=== PATIENT | female | born 1970 | race Caucasian/White ===

== ENCOUNTER 2016-07-10 11:58 | Inpatient (IN) | payer OTHER ==
[~2016-07-10] VITALS: Ht 147.3 cm; Wt 54.0 kg
[2016-07-10 13:25] LABS: CHLORIDE 101 mEq/L (99-109); POTASSIUM 4.1 mEq/L (3.7-5.4); SODIUM 135 mEq/L (136-147)
[2016-07-10 13:26] LABS: GLUCOSE 132 mg/dL (70-99)
[2016-07-10 13:27] LABS: HEMATOCRIT 35.4 % (36.0-46.0); MCH 31.8 PG (29.0-34.0); MCHC 32.8 G/DL (30.0-36.0); MEAN PLAT.VOLUME 10.7 uM^3 (9.5-12.4); PLATELET COUNT 222 K/uL (156-360); RBC DIS.WIDTH-CV 13.1 % (11.8-14.6); RBC DIS.WIDTH-SD 44.3 % (39-53); RED BLOOD COUNT 3.65 M/uL (3.80-5.20); WHITE BLOOD COUNT 26.1 K/uL (4.1-10.2)
[2016-07-10 13:28] LABS: ANION GAP 8 MEQ/L (2-14)
[2016-07-10 13:30] LABS: GFR ESTIMATE (CALCULATED) > 59 mL/min/
[2016-07-10 13:31] LABS: UREA NITROGEN (BUN) 17 mg/dL (9-23)
[2016-07-10] MEDS ORDERED: LISINOPRIL20 MG PO (14:29)
[2016-07-10] MEDS ORDERED: ROSUVASTATIN CA20 MG PO (14:29)
[2016-07-10] MEDS ORDERED: DIVALPROEX SOD500 M1 PO (14:30)
[2016-07-10] MEDS ORDERED: SUMATRIPTAN SU100 MG PO (14:30)
[2016-07-10] MEDS ORDERED: ONDANSETRON HCL4 MG PO (14:31)
[2016-07-10 15:03] LABS: TOTAL BILIRUBIN 0.6 mg/dL (0.0-1.0)
[2016-07-10 15:04] LABS: ALKALINE PHOSPHATASE 110 IU/L (3-129)
[2016-07-10 15:06] LABS: DIRECT BILIRUBIN 0.3 mg/dL (0.0-0.3)
[2016-07-10 15:07] LABS: LIPASE 2 U/L (1.0-51.0)
[2016-07-10 15:47] LABS: ADD MIUA? YES; BILIRUBIN NEGATIVE; BLOOD SMALL; COLOR AMBER ((YELLOW)); GLUCOSE (STRIP) NEGATIVE; KETONES 20; LEUKOCYTES LARGE; NITRITE NEGATIVE; PROTEIN (STRIP) 100; SPECIFIC GRAVITY 1.023 (1.000-1.030); UROBILINOGEN 0.2 MG/DL (0.2-1.0)
[2016-07-10 15:50] LABS: BACTERIA NONE SEEN /HPF; CASTS NONE SEEN /LPF; CRYSTALS NONE SEEN; EPITHELIAL CELLS 1+ /HPF; MUCUS 2+ /LPF; RED BLOOD CELLS 20-30 /HPF (0-5); UCUL ADDED? YES; WHITE BLOOD CELLS TNTC /HPF (0-5); WHITE BLOOD CELLS CLUMP FEW /HPF (0-5)
[2016-07-10 16:19] LABS: INTER. NORMALIZED RATIO 1.2; PROTHROMBIN TIME 12.2 (9.2-11.2); PTT 31.8 (25-32)
[2016-07-10 16:46] LABS: QUANTITATIVE HCG < 4.0 MIU/ML
[2016-07-10] MEDS ORDERED: NAPROXEN500 MG PO (17:46)
[2016-07-10 19:55] VITALS: BP 122/72
[2016-07-11 03:00] VITALS: BP 111/55
[2016-07-11 06:53] LABS: EOSINOPHIL (%) 0 % (0-5); HEMATOCRIT 26.5 % (36.0-46.0); IMMATURE GRANULOCYTE (%) 0.2 % (0.0-0.7); LYMPHOCYTE COUNT 0.6 K/uL (1.0-2.8); MCH 31.3 PG (29.0-34.0); MCHC 32.5 G/DL (30.0-36.0); MCV 96.4 FL (83-99); MEAN PLAT.VOLUME 10.5 uM^3 (9.5-12.4); MONOCYTE (%) 9.8 % (3-12); MONOCYTE COUNT 1.2 K/uL (0-0.8); NEUTROPHIL (%) 85.3 % (45-76); NEUTROPHIL COUNT 10.5 K/uL (1.8-6.4); PLATELET COUNT 169 K/uL (156-360); RBC DIS.WIDTH-CV 13.7 % (11.8-14.6); RBC DIS.WIDTH-SD 48.1 % (39-53)
[2016-07-11 07:00] VITALS: BP 108/68
[2016-07-11 07:08] LABS: ANION GAP 8 MEQ/L (2-14); CHLORIDE 107 MEQ/L (99-109); GFR ESTIMATE (CALCULATED) > 59 mL/min/; GLUCOSE 186 mg/dL (70-99); POTASSIUM 3.6 MEQ/L (3.7-5.4); SAMPLE HEMOLYSIS CHECK 0; SAMPLE ICTERIC CHECK 0; SAMPLE LIPEMIA CHECK 0; SODIUM 139 MEQ/L (136-147); UREA NITROGEN (BUN) 13 mg/dL (9-23)
[2016-07-11 07:13] LABS: RED BLOOD COUNT 2.75 M/uL (3.80-5.20); WHITE BLOOD COUNT 12.3 K/uL (4.1-10.2)
[2016-07-11 12:19] VITALS: BP 106/58
[2016-07-11 16:01] VITALS: BP 106/79
[2016-07-11 19:28] VITALS: BP 114/69
[2016-07-11 23:33] VITALS: BP 121/63
[2016-07-12 03:23] VITALS: BP 121/70
[2016-07-12 07:35] LABS: ANION GAP 8 MEQ/L (2-14); CHLORIDE 112 MEQ/L (99-109); GFR ESTIMATE (CALCULATED) > 59 mL/min/; GLUCOSE 159 mg/dL (70-99); HEMATOCRIT 27.3 % (36.0-46.0); MCH 31.4 PG (29.0-34.0); MCHC 31.5 G/DL (30.0-36.0); MCV 99.6 FL (83-99); PLATELET COUNT 184 K/uL (156-360); POTASSIUM 3.9 MEQ/L (3.7-5.4); RBC DIS.WIDTH-CV 13.8 % (11.8-14.6); RBC DIS.WIDTH-SD 49.9 % (39-53); RED BLOOD COUNT 2.74 M/uL (3.80-5.20); SAMPLE HEMOLYSIS CHECK 0; SAMPLE ICTERIC CHECK 0; SAMPLE LIPEMIA CHECK 0; SODIUM 143 MEQ/L (136-147); UREA NITROGEN (BUN) 10 mg/dL (9-23)
[2016-07-12 07:42] LABS: WHITE BLOOD COUNT 8.2 K/uL (4.1-10.2)
[2016-07-12 07:55] VITALS: BP 136/84
[2016-07-12] MEDS ORDERED: ACETAMINOPHEN-1 EAC1 PO (13:50)
[2016-07-12 15:35] VITALS: BP 138/80
[2016-07-12] MEDS ORDERED: CEFDINIR300 MG PO (16:14)
== END 2016-07-12 17:15 | disposition home or self-care (01) | DRG 872 ==
LOC: EME 11:58 → EDOF 18:07 → 2EAST 18:07
PROVIDERS: Family Medicine; Physician Assistant; Urology
DX: A41.9 Sepsis, unspecified organism (principal); N13.6 Pyonephrosis; B96.20 Unspecified Escherichia coli [E. coli] as the cause of diseases classified elsewhere; R31.9 Hematuria, unspecified; I10 Essential (primary) hypertension; E78.5 Hyperlipidemia, unspecified; D64.9 Anemia, unspecified; G43.909 Migraine, unspecified, not intractable, without status migrainosus; Z85.820 Personal history of malignant melanoma of skin; Z88.0 Allergy status to penicillin
CPT/HCPCS: 50433; 74000; 74177; 74420; 80048; 80076; 81003; 83690; 84702; 85025; 85027; 85610; 85730; 87040; 87077; 87086; 87186; 99281; 99285; C1769; C1876; J0696; J1100; J1200; J1644; J2250; J2405; J3010; J7030; J7042; J7050

== ENCOUNTER 2016-08-01 15:10 | Inpatient (IN) | payer OTHER ==
[~2016-08-01] VITALS: Ht 147.3 cm; Wt 55.2 kg
[~2016-08-01 15:10] MED LIST: ACETAMINOPHEN-1 EAC1 PO; CEFDINIR300 MG PO; DIVALPROEX SOD500 M1 PO; LISINOPRIL20 MG PO; NAPROXEN500 MG PO; ONDANSETRON HCL4 MG PO; ROSUVASTATIN CA20 MG PO; SUMATRIPTAN SU100 MG PO
[2016-08-01 16:40] LABS: EOSINOPHIL (%) 0.3 % (0-5); HEMATOCRIT 35.9 % (36.0-46.0); IMMATURE GRANULOCYTE (%) 0.2 % (0.0-0.7); IMMATURE GRANULOCYTE COUNT 0.3 K/uL; LYMPHOCYTE COUNT 1.5 K/uL (1.0-2.8); MCH 30.6 PG (29.0-34.0); MCHC 33.1 G/DL (30.0-36.0); MEAN PLAT.VOLUME 10.1 uM^3 (9.5-12.4); MONOCYTE (%) 4.6 % (3-12); MONOCYTE COUNT 0.6 K/uL (0-0.8); NEUTROPHIL (%) 83.9 % (45-76); NEUTROPHIL COUNT 11.2 K/uL (1.8-6.4); PLATELET COUNT 231 K/uL (156-360); RBC DIS.WIDTH-CV 13.2 % (11.8-14.6)
[2016-08-01 16:41] LABS: MCV 92.3 FL (83-99); RED BLOOD COUNT 3.89 M/uL (3.80-5.20); WHITE BLOOD COUNT 13.4 K/uL (4.1-10.2)
[2016-08-01 16:45] LABS: CHLORIDE 102 mEq/L (99-109); POTASSIUM 4.5 mEq/L (3.7-5.4); SODIUM 136 mEq/L (136-147)
[2016-08-01 16:47] LABS: GLUCOSE 119 mg/dL (70-99)
[2016-08-01 16:48] LABS: ANION GAP 10 MEQ/L (2-14)
[2016-08-01 16:49] LABS: TOTAL BILIRUBIN 0.4 mg/dL (0.0-1.0)
[2016-08-01 16:50] LABS: ALKALINE PHOSPHATASE 202 IU/L (3-129)
[2016-08-01 16:51] LABS: GFR ESTIMATE (CALCULATED) 30 mL/min/
[2016-08-01 16:52] LABS: UREA NITROGEN (BUN) 31 mg/dL (9-23)
[2016-08-01 16:54] LABS: LIPASE 9 U/L (1.0-51.0)
[2016-08-01 17:51] LABS: ADD MIUA? YES; BILIRUBIN NEGATIVE; BLOOD MODERATE; COLOR YELLOW ((YELLOW)); GLUCOSE (STRIP) NEGATIVE; KETONES 5; LEUKOCYTES LARGE; NITRITE NEGATIVE; PROTEIN (STRIP) 100; SPECIFIC GRAVITY 1.011 (1.000-1.030); UROBILINOGEN 0.2 MG/DL (0.2-1.0)
[2016-08-01 17:57] LABS: BACTERIA 1+ /HPF; EPITHELIAL CELLS RARE /HPF; MUCUS NONE SEEN /LPF; WHITE BLOOD CELLS TNTC /HPF (0-5); WHITE BLOOD CELLS CLUMP MANY /HPF (0-5)
[2016-08-01] MEDS ORDERED: ONDANSETRON HCL4 MG PO (18:51)
[2016-08-01] MEDS ORDERED: CRANBERRY500 M1 PO (19:27)
[2016-08-01] MEDS ORDERED: HAIR, SKIN & N1 EAC2 PO (19:28)
[2016-08-01] MEDS ORDERED: AIRBORNE GUMMI1 EACH PO (19:28)
[2016-08-01 21:17] VITALS: BP 100/60
[2016-08-02] VITALS: BP 86/52
[2016-08-02 07:13] LABS: HEMATOCRIT 32.6 % (36.0-46.0); MCHC 30.7 G/DL (30.0-36.0); MCV 94.5 FL (83-99); RBC DIS.WIDTH-CV 13.6 % (11.8-14.6); RBC DIS.WIDTH-SD 47.1 % (39-53); RED BLOOD COUNT 3.45 M/uL (3.80-5.20); WHITE BLOOD COUNT 9.5 K/uL (4.1-10.2)
[2016-08-02 07:32] LABS: EOSINOPHIL (%) 0.1 % (0-5); IMMATURE GRANULOCYTE (%) 0.2 % (0.0-0.7); LYMPHOCYTE COUNT 0.5 K/uL (1.0-2.8); MONOCYTE (%) 1.5 % (3-12); MONOCYTE COUNT 0.1 K/uL (0-0.8); NEUTROPHIL (%) 92.7 % (45-76); NEUTROPHIL COUNT 8.8 K/uL (1.8-6.4)
[2016-08-02 07:41] VITALS: BP 102/64
[2016-08-02 07:53] LABS: ANION GAP 9 MEQ/L (2-14); CHLORIDE 112 MEQ/L (99-109); GLUCOSE 146 mg/dL (70-99); POTASSIUM 4.7 MEQ/L (3.7-5.4); SAMPLE HEMOLYSIS CHECK 0; SAMPLE ICTERIC CHECK 0; SAMPLE LIPEMIA CHECK 0; SODIUM 142 MEQ/L (136-147); UREA NITROGEN (BUN) 21 mg/dL (9-23)
[2016-08-02 07:54] LABS: GFR ESTIMATE (CALCULATED) > 59 mL/min/
[2016-08-02 09:01] LABS: HEMATOLOGY COMMENT 1 REV; USER ID NJR
[2016-08-02 09:02] LABS: MEAN PLAT.VOLUME 10.6 uM^3 (9.5-12.4); PLATELET COUNT 144 K/uL (156-360)
[2016-08-02 14:49] VITALS: BP 130/82
[2016-08-02 19:29] VITALS: BP 126/68
[2016-08-02 23:49] VITALS: BP 158/76
[2016-08-03 07:30] VITALS: BP 165/88
[2016-08-03 07:45] LABS: HEMATOCRIT 32.7 % (36.0-46.0); MCH 30.2 PG (29.0-34.0); MCHC 31.8 G/DL (30.0-36.0); MCV 95.1 FL (83-99); MEAN PLAT.VOLUME 10.9 uM^3 (9.5-12.4); PLATELET COUNT 173 K/uL (156-360); RBC DIS.WIDTH-CV 13.6 % (11.8-14.6); RBC DIS.WIDTH-SD 47.5 % (39-53); RED BLOOD COUNT 3.44 M/uL (3.80-5.20); WHITE BLOOD COUNT 8.9 K/uL (4.1-10.2)
[2016-08-03 08:14] LABS: ANION GAP 11 MEQ/L (2-14); CHLORIDE 111 MEQ/L (99-109); GFR ESTIMATE (CALCULATED) 51 mL/min/; GLUCOSE 128 mg/dL (70-99); POTASSIUM 4.7 MEQ/L (3.7-5.4); SAMPLE HEMOLYSIS CHECK 0; SAMPLE ICTERIC CHECK 0; SAMPLE LIPEMIA CHECK 0; SODIUM 142 MEQ/L (136-147); UREA NITROGEN (BUN) 29 mg/dL (9-23)
[2016-08-03 15:10] VITALS: BP 161/90
[2016-08-04] VITALS: BP 153/81
[2016-08-04 07:49] VITALS: BP 190/84
[2016-08-04 08:38] VITALS: BP 167/75
[2016-08-04 15:33] VITALS: BP 159/80
[2016-08-04 23:36] VITALS: BP 170/75
[2016-08-05 10:05] VITALS: BP 170/80
[2016-08-05] MEDS ORDERED: TAMSULOSIN HCL0.4 MG PO (11:28)
[2016-08-05] MEDS ORDERED: CIPRO500 MG PO (11:29)
[2016-08-05 11:35] VITALS: BP 155/84
== END 2016-08-05 13:45 | disposition home or self-care (01) | DRG 854 ==
LOC: EME 15:10 → EDOF 20:22 → 5SOUTH 20:22
PROVIDERS: Family Medicine; Physician Assistant; Physician Assistant Medical
PROC: 0T778DZ Dilation of Left Ureter with Intraluminal Device, Via Natural or Artificial Opening Endoscopic (ICD-10-PCS; principal; 2016-08-05)
PROC: 0TP98DZ Removal of Intraluminal Device from Ureter, Via Natural or Artificial Opening Endoscopic (ICD-10-PCS; principal; 2016-08-05)
PROC: 0TC78ZZ Extirpation of Matter from Left Ureter, Via Natural or Artificial Opening Endoscopic (ICD-10-PCS; principal; 2016-08-05)
PROC: BT1F1ZZ Fluoroscopy of Left Kidney, Ureter and Bladder using Low Osmolar Contrast (ICD-10-PCS; principal; 2016-08-05)
DX: A41.9 Sepsis, unspecified organism (principal); N13.6 Pyonephrosis; B96.20 Unspecified Escherichia coli [E. coli] as the cause of diseases classified elsewhere; N20.1 Calculus of ureter; N17.9 Acute kidney failure, unspecified; T88.6XXA Anaphylactic reaction due to adverse effect of correct drug or medicament properly administered, initial encounter; T46.6X5A Adverse effect of antihyperlipidemic and antiarteriosclerotic drugs, initial encounter; R74.8 Abnormal levels of other serum enzymes; I10 Essential (primary) hypertension; E78.5 Hyperlipidemia, unspecified; G43.909 Migraine, unspecified, not intractable, without status migrainosus; Z85.820 Personal history of malignant melanoma of skin; Z88.0 Allergy status to penicillin; Z88.5 Allergy status to narcotic agent
CPT/HCPCS: 74176; 80048; 80053; 81003; 83605; 83690; 85025; 85027; 87040; 87077; 87086; 87186; 87493; 93005; 93306; 99281; 99285; C1876; C1894; J0131; J0696; J1100; J1650; J1885; J2250; J2405; J3010; J7030; J7050